=== PATIENT | male | born 1995 | race Caucasian/White ===

== ENCOUNTER 2017-11-23 05:21 | Day surgery (SDC) | payer SELFPAY ==
[~2017-11-23] VITALS: Ht 195.6 cm; Wt 139.5 kg
[2017-11-23] MEDS ORDERED: PERCOCET 325 MG1 TA3 PO ×2 (05:40→09:43)
[2017-11-23 06:03] VITALS: BP 140/76; PULSE 75; TEMP 98.5
[2017-11-23] MEDS ORDERED: COLACE 100100 MG/CAP PO (09:43)
[2017-11-23] MEDS ORDERED: MOTRIN 600600 MG/TAB PO (09:44)
[2017-11-23 10:30] VITALS: BP 147/60; PULSE 82; TEMP 98.7
[2017-11-23 10:45] VITALS: BP 153/57; PULSE 94
[2017-11-23 11:00] VITALS: BP 125/67; PULSE 89
[2017-11-23 11:15] VITALS: BP 141/66; PULSE 87
== END 2017-11-23 11:50 | disposition home or self-care (01) ==
LOC: SDCO 05:21
DX: K42.9 Umbilical hernia without obstruction or gangrene (principal); F17.290 Nicotine dependence, other tobacco product, uncomplicated; G47.30 Sleep apnea, unspecified
CPT/HCPCS: C1781; J0690; J1100; J1885; J2175; J2405; J2704; J3010; J7120

== ENCOUNTER 2018-01-08 17:36 | Emergency (ER) | payer SELFPAY ==
[~2018-01-08] VITALS: Ht 195.6 cm; Wt 144.1 kg
[~2018-01-08 17:36] MED LIST: COLACE 100100 MG/CAP PO; MOTRIN 600600 MG/TAB PO; PERCOCET 325 MG1 TA3 PO
[2018-01-08 17:46] VITALS: TEMP 99.5
[2018-01-08 18:35] LABS: BASO % 0.4 % (0.0-2.0); EOS # 0.1 (0.0-0.7); EOS % 0.8 % (0-4.0); GRAN # 5.4 (1.4-6.5); GRAN % 60.7 % (42.2-75.2); HEMATOCRIT 42.4 % (42.0-52.0); HEMOGLOBIN 14.8 g/dl (13.5-18.0); LYMPH # 2.7 (1.2-3.4); LYMPH % 30.3 % (20.0-51.0); MEAN CELL VOLUME 93 fl (80.0-100.0); MEAN CORPUSCULAR HEMOGLOBIN 33 pg (27.0-31.0); MEAN CORPUSCULAR HGB CONC 35 g/dl (33.0-37.0); MONO # 0.7 (0.1-0.6); MONO % 7.6 % (1.7-9.3); PLATELET COUNT 213 K/mm3 (130-400); RED BLOOD COUNT 4.55 M/mm3 (4.20-5.60); REDCELL DISTRIBUTION WIDTH-CV 12.7 % (11.5-14.5)
[2018-01-08 18:46] LABS: ALANINE AMINOTRANSFERASE 69 U/L (21-72); ALBUMIN 4.2 gm/dL (3.5-5.0); ALKALINE PHOSPHATASE 77 U/L (50-136); ANION GAP 14 mmol/L (7-16); AST,SGOT 35 U/L (15-37); BILIRUBIN,TOTAL 0.3 mg/dL (0.0-1.0); BLOOD UREA NITROGEN 14 mg/dL (9-20); CALCIUM 9.5 mg/dL (8.4-10.2); CARBON DIOXIDE 23 mmol/L (22-30); CHLORIDE 106 mmol/L (98-107); CREATININE, serum 0.97 mg/dL (0.66-1.25); GLUCOSE 92 mg/dL (74-106); LIPASE 56 U/L (23-300); POTASSIUM 3.8 mmol/L (3.4-5.0); SODIUM 144 mmol/L (137-145); TOTAL PROTEIN 7.7 gm/dL (6.4-8.2)
[2018-01-08 18:47] LABS: C-REACTIVE PROTEIN < 0.5 mg/dL (0.0-0.9)
[2018-01-08 19:35] LABS: COLLECTION METHOD CLEAN CATCH
[2018-01-08 19:40] LABS: PH 5 (5-8); SQUAMOUS EPITHELIAL None Seen /hpf; URINE APPEARANCE Clear; URINE BACTERIA None Seen /hpf; URINE BILIRUBIN Negative (NEGATIVE); URINE BLOOD 3+ (NEGATIVE); URINE COLOR Yellow; URINE GLUCOSE Negative (NEGATIVE); URINE KETONE Negative (NEGATIVE); URINE LEUKOCYTE ESTERASE Negative (NEGATIVE); URINE NITRATE Negative (NEGATIVE); URINE PROTEIN(semi-quant) Negative (NEGATIVE); URINE RBC >50 /hpf; URINE UROBILINOGEN Negative (NEGATIVE)
[2018-01-08] MEDS ORDERED: ZOFRAN 4MG T4 MG/TAB PO (19:54)
[2018-01-08] MEDS ORDERED: NORCO 325 MG-51 TAB PO (19:54)
[2018-01-08] MEDS ORDERED: FLOMAX 0.40.4 MG/CAP PO (19:55)
[2018-01-08 20:15] VITALS: BP 147/88; PULSE 80
== END 2018-01-08 20:42 | disposition home or self-care (01) ==
LOC: COL.ER 17:36
PROVIDERS: Emergency Medicine
DX: N20.2 Calculus of kidney with calculus of ureter (principal); F17.210 Nicotine dependence, cigarettes, uncomplicated; Z98.890 Other specified postprocedural states
CPT/HCPCS: J1170; J1885; J2405; J7030; Q9967

== ENCOUNTER 2018-01-26 20:43 | Emergency (ER) | payer SELFPAY ==
[~2018-01-26] VITALS: Ht 195.6 cm; Wt 144.1 kg
[~2018-01-26 20:43] MED LIST changes: +FLOMAX 0.40.4 MG/CAP PO; +NORCO 325 MG-51 TAB PO; +ZOFRAN 4MG T4 MG/TAB PO
[2018-01-26 20:55] LABS: BASO # 0.1 (0.0-0.2); BASO % 0.4 % (0.0-2.0); EOS # 0.3 (0.0-0.7); EOS % 2.2 % (0-4.0); GRAN # 5.9 (1.4-6.5); GRAN % 50.8 % (42.2-75.2); HEMOGLOBIN 16.7 g/dl (13.5-18.0); LYMPH # 4.2 (1.2-3.4); LYMPH % 36.6 % (20.0-51.0); MEAN CELL VOLUME 92 fl (80.0-100.0); MEAN CORPUSCULAR HEMOGLOBIN 33 pg (27.0-31.0); MEAN CORPUSCULAR HGB CONC 36 g/dl (33.0-37.0); MEAN PLATELET VOLUME 10.9 fl (7.4-10.4); MONO # 1.1 (0.1-0.6); MONO % 9.7 % (1.7-9.3); PLATELET COUNT 262 K/mm3 (130-400); RED BLOOD COUNT 5.13 M/mm3 (4.20-5.60); REDCELL DISTRIBUTION WIDTH-CV 12.3 % (11.5-14.5)
[2018-01-26 20:56] LABS: INR 1.1 (0.8-3.0)
[2018-01-26 21:04] LABS: ALANINE AMINOTRANSFERASE 73 U/L (21-72); ALBUMIN 4.5 gm/dL (3.5-5.0); ALKALINE PHOSPHATASE 72 U/L (50-136); ANION GAP 18 mmol/L (7-16); AST,SGOT 38 U/L (15-37); BILIRUBIN,TOTAL 0.5 mg/dL (0.0-1.0); BLOOD UREA NITROGEN 20 mg/dL (9-20); CALCIUM 9.6 mg/dL (8.4-10.2); CARBON DIOXIDE 21 mmol/L (22-30); CHLORIDE 102 mmol/L (98-107); CREATININE, serum 1.55 mg/dL (0.66-1.25); GLUCOSE 97 mg/dL (74-106); POTASSIUM 4.3 mmol/L (3.4-5.0); SODIUM 141 mmol/L (137-145); TOTAL PROTEIN 8.8 gm/dL (6.4-8.2)
[2018-01-26 21:25] LABS: TROPONIN-I < 0.012 ng/mL (0.000-0.034)
[2018-01-26 22:18] LABS: COLLECTION METHOD CLEAN CATCH
[2018-01-26 22:25] LABS: PH 6 (5-8); SQUAMOUS EPITHELIAL 0-2 /hpf; URINE APPEARANCE Clear; URINE BACTERIA None Seen /hpf; URINE BILIRUBIN Negative (NEGATIVE); URINE BLOOD Negative (NEGATIVE); URINE COLOR Yellow; URINE GLUCOSE Negative (NEGATIVE); URINE KETONE Negative (NEGATIVE); URINE LEUKOCYTE ESTERASE Negative (NEGATIVE); URINE NITRATE Negative (NEGATIVE); URINE PROTEIN(semi-quant) Negative (NEGATIVE); URINE RBC 0-2 /hpf; URINE UROBILINOGEN Negative (NEGATIVE)
[2018-01-27 01:05] VITALS: BP 128/73; PULSE 89
[2018-01-27 10:12] LABS: TRICYCLIC ANTIDEPRESS URINE NEGATIVE
== END 2018-01-27 01:05 | disposition home or self-care (01) ==
LOC: COL.ER 20:43
PROVIDERS: Emergency Medicine
DX: R07.89 Other chest pain (principal); F17.210 Nicotine dependence, cigarettes, uncomplicated; Z87.442 Personal history of urinary calculi
CPT/HCPCS: J2270; J2765

== ENCOUNTER 2018-03-13 11:04 | Emergency (ER) | payer SELFPAY ==
[~2018-03-13] VITALS: Ht 182.9 cm; Wt 138.2 kg
[2018-03-13 11:10] VITALS: TEMP 98.2
[2018-03-13] MEDS ORDERED: ZANTAC 150MG T150 MG PO (11:17)
[2018-03-13 11:59] LABS: BASO % 0.6 % (0.0-2.0); EOS # 0.2 (0.0-0.7); EOS % 2.1 % (0-4.0); GRAN % 54.5 % (42.2-75.2); HEMATOCRIT 43.3 % (42.0-52.0); HEMOGLOBIN 14.8 g/dl (13.5-18.0); LYMPH # 2.3 (1.2-3.4); LYMPH % 32.4 % (20.0-51.0); MEAN CELL VOLUME 93 fl (80.0-100.0); MEAN CORPUSCULAR HEMOGLOBIN 32 pg (27.0-31.0); MEAN CORPUSCULAR HGB CONC 34 g/dl (33.0-37.0); MEAN PLATELET VOLUME 10.9 fl (7.4-10.4); MONO # 0.7 (0.1-0.6); MONO % 10.1 % (1.7-9.3); PLATELET COUNT 209 K/mm3 (130-400); RED BLOOD COUNT 4.66 M/mm3 (4.20-5.60); REDCELL DISTRIBUTION WIDTH-CV 12.8 % (11.5-14.5)
[2018-03-13 12:11] LABS: ALANINE AMINOTRANSFERASE 52 U/L (21-72); ALKALINE PHOSPHATASE 76 U/L (50-136); ANION GAP 11 mmol/L (7-16); AST,SGOT 28 U/L (15-37); BILIRUBIN,TOTAL 0.2 mg/dL (0.0-1.0); BLOOD UREA NITROGEN 13 mg/dL (9-20); C-REACTIVE PROTEIN < 0.5 mg/dL (0.0-0.9); CALCIUM 9.4 mg/dL (8.4-10.2); CARBON DIOXIDE 23 mmol/L (22-30); CHLORIDE 104 mmol/L (98-107); CREATININE, serum 0.82 mg/dL (0.66-1.25); GLUCOSE 108 mg/dL (74-106); SODIUM 138 mmol/L (137-145)
[2018-03-13 12:20] LABS: COLLECTION METHOD CLEAN CATCH
[2018-03-13 12:25] LABS: PH 5 (5-8); SQUAMOUS EPITHELIAL None Seen /hpf; URINE APPEARANCE Clear; URINE BACTERIA None Seen /hpf; URINE BILIRUBIN Negative (NEGATIVE); URINE BLOOD Negative (NEGATIVE); URINE COLOR Yellow; URINE GLUCOSE Negative (NEGATIVE); URINE KETONE Negative (NEGATIVE); URINE LEUKOCYTE ESTERASE Negative (NEGATIVE); URINE NITRATE Negative (NEGATIVE); URINE PROTEIN(semi-quant) Negative (NEGATIVE); URINE RBC 0-2 /hpf; URINE UROBILINOGEN Negative (NEGATIVE)
[2018-03-13] MEDS ORDERED: NORCO 325 MG-51 TAB PO (13:50)
[2018-03-13] MEDS ORDERED: ZOFRAN ODT4 MG PO (13:50)
[2018-03-13 14:33] VITALS: BP 133/91; PULSE 85
== END 2018-03-13 14:35 | disposition home or self-care (01) ==
LOC: COL.ER 11:04
PROVIDERS: Emergency Medicine
DX: R11.10 Vomiting, unspecified (principal); R10.30 Lower abdominal pain, unspecified; Z98.890 Other specified postprocedural states
CPT/HCPCS: J1170; J2405; J7030; Q9967

== ENCOUNTER 2018-03-31 16:40 | Emergency (ER) | payer SELFPAY ==
[~2018-03-31] VITALS: Ht 195.6 cm; Wt 135.5 kg
[~2018-03-31 16:40] MED LIST changes: +ZANTAC 150MG T150 MG PO; +ZOFRAN ODT4 MG PO
[2018-03-31 18:00] LABS: BASO % 0.5 % (0.0-2.0); EOS # 0.2 (0.0-0.7); EOS % 1.9 % (0-4.0); GRAN # 4.8 (1.4-6.5); GRAN % 60.7 % (42.2-75.2); HEMATOCRIT 43.4 % (42.0-52.0); HEMOGLOBIN 15.1 g/dl (13.5-18.0); LYMPH # 2.3 (1.2-3.4); MEAN CELL VOLUME 93 fl (80.0-100.0); MEAN CORPUSCULAR HEMOGLOBIN 32 pg (27.0-31.0); MEAN CORPUSCULAR HGB CONC 35 g/dl (33.0-37.0); MEAN PLATELET VOLUME 10.6 fl (7.4-10.4); MONO # 0.6 (0.1-0.6); MONO % 7.8 % (1.7-9.3); PLATELET COUNT 200 K/mm3 (130-400); RED BLOOD COUNT 4.68 M/mm3 (4.20-5.60); REDCELL DISTRIBUTION WIDTH-CV 12.8 % (11.5-14.5)
[2018-03-31 18:14] LABS: BILIRUBIN,TOTAL 0.4 mg/dL (0.0-1.0); C-REACTIVE PROTEIN 0.7 mg/dL (0.0-0.9); CALCIUM 8.6 mg/dL (8.4-10.2); CREATININE, serum 0.93 mg/dL (0.66-1.25); POTASSIUM 3.9 mmol/L (3.4-5.0)
[2018-03-31 18:22] LABS: COLLECTION METHOD CLEAN CATCH
[2018-03-31 18:33] LABS: MUCOUS Present /lpf; PH 6 (5-8); SQUAMOUS EPITHELIAL 0-2 /hpf; URINE APPEARANCE Clear; URINE BACTERIA None Seen /hpf; URINE BILIRUBIN Negative (NEGATIVE); URINE BLOOD Negative (NEGATIVE); URINE COLOR Yellow; URINE GLUCOSE Negative (NEGATIVE); URINE KETONE Negative (NEGATIVE); URINE LEUKOCYTE ESTERASE Negative (NEGATIVE); URINE NITRATE Negative (NEGATIVE); URINE PROTEIN(semi-quant) Negative (NEGATIVE); URINE RBC 0-2 /hpf; URINE UROBILINOGEN >=4.0 mg/dL (NEGATIVE)
[2018-03-31 19:09] VITALS: BP 130/73; PULSE 69; TEMP 97.8
== END 2018-03-31 19:22 | disposition home or self-care (01) ==
LOC: COL.ER 16:40
PROVIDERS: Nurse Practitioner
DX: R10.13 Epigastric pain (principal); F17.210 Nicotine dependence, cigarettes, uncomplicated; Z98.890 Other specified postprocedural states
CPT/HCPCS: J1170; J2405; J7030

== ENCOUNTER 2018-04-15 12:28 | Emergency (ER) | payer SELFPAY ==
[~2018-04-15] VITALS: Ht 195.6 cm; Wt 135.0 kg
[2018-04-15] MEDS ORDERED: NORCO 325 MG-7.1 TAB PO (13:32)
[2018-04-15 13:53] VITALS: BP 140/91; PULSE 105; TEMP 98.3
== END 2018-04-15 13:55 | disposition home or self-care (01) ==
LOC: COL.ER 12:28
DX: S49.91XA Unspecified injury of right shoulder and upper arm, initial encounter (principal); F17.210 Nicotine dependence, cigarettes, uncomplicated; Z98.890 Other specified postprocedural states; W19.XXXA Unspecified fall, initial encounter; Y92.89 Other specified places as the place of occurrence of the external cause

== ENCOUNTER 2018-05-04 12:42 | Emergency (ER) | payer SELFPAY ==
[~2018-05-04] VITALS: Ht 195.6 cm; Wt 143.6 kg
[~2018-05-04 12:42] MED LIST changes: +NORCO 325 MG-7.1 TAB PO
[2018-05-04 12:51] VITALS: BP 151/89; PULSE 67; TEMP 98.3
== END 2018-05-04 13:59 | disposition left against medical advice (07) ==
LOC: COL.ER 12:42
DX: R10.32 Left lower quadrant pain (principal)

== ENCOUNTER 2018-06-25 18:31 | Emergency (ER) | payer OTHER ==
[~2018-06-25] VITALS: Ht 182.9 cm; Wt 143.2 kg
[2018-06-25 18:34] VITALS: TEMP 98
[2018-06-25 21:06] VITALS: BP 136/66; PULSE 86
== END 2018-06-25 21:07 | disposition home or self-care (01) ==
LOC: COL.ER 18:31
DX: S93.402A Sprain of unspecified ligament of left ankle, initial encounter (principal); F17.210 Nicotine dependence, cigarettes, uncomplicated; X50.1XXA Overexertion from prolonged static or awkward postures, initial encounter; Y99.0 Civilian activity done for income or pay
CPT/HCPCS: J1885

== ENCOUNTER 2018-09-22 18:34 | Emergency (ER) | payer SELFPAY ==
[~2018-09-22] VITALS: Ht 195.6 cm; Wt 144.1 kg
[2018-09-22 18:43] VITALS: TEMP 99
[2018-09-22 21:55] LABS: BASO # 0.1 (0.0-0.2); BASO % 0.5 % (0.0-2.0); EOS # 0.2 (0.0-0.7); EOS % 2.3 % (0-4.0); GRAN # 4.4 (1.4-6.5); HEMATOCRIT 43.2 % (42.0-52.0); HEMOGLOBIN 15.1 g/dl (13.5-18.0); LYMPH # 3.9 (1.2-3.4); LYMPH % 41.6 % (20.0-51.0); MEAN CELL VOLUME 94 fl (80.0-100.0); MEAN CORPUSCULAR HEMOGLOBIN 33 pg (27.0-31.0); MEAN CORPUSCULAR HGB CONC 35 g/dl (33.0-37.0); MEAN PLATELET VOLUME 11.1 fl (7.4-10.4); MONO # 0.8 (0.1-0.6); MONO % 8.5 % (1.7-9.3); PLATELET COUNT 211 K/mm3 (130-400); RED BLOOD COUNT 4.62 M/mm3 (4.20-5.60); REDCELL DISTRIBUTION WIDTH-CV 12.3 % (11.5-14.5)
[2018-09-22 22:07] LABS: ALANINE AMINOTRANSFERASE 62 U/L (21-72); ALBUMIN 4.3 gm/dL (3.5-5.0); ALKALINE PHOSPHATASE 66 U/L (50-136); ANION GAP 8 mmol/L (7-16); AST,SGOT 33 U/L (15-37); BILIRUBIN,TOTAL 0.2 mg/dL (0.0-1.0); BLOOD UREA NITROGEN 13 mg/dL (9-20); C-REACTIVE PROTEIN < 0.5 mg/dL (0.0-0.9); CALCIUM 8.9 mg/dL (8.4-10.2); CARBON DIOXIDE 24 mmol/L (22-30); CHLORIDE 105 mmol/L (98-107); CREATININE, serum 0.95 mg/dL (0.66-1.25); GLUCOSE 93 mg/dL (74-106); LIPASE 59 U/L (23-300); POTASSIUM 3.8 mmol/L (3.4-5.0); SODIUM 138 mmol/L (137-145); TOTAL PROTEIN 7.2 gm/dL (6.4-8.2)
[2018-09-22 22:44] LABS: COLLECTION METHOD CLEAN CATCH
[2018-09-22 22:59] LABS: AMORPHOUS CRYSTAL Present /uL; PH 7 (5-8); SQUAMOUS EPITHELIAL None Seen /hpf; URINE APPEARANCE Hazy; URINE BACTERIA None Seen /hpf; URINE BILIRUBIN Negative (NEGATIVE); URINE BLOOD Negative (NEGATIVE); URINE COLOR Yellow; URINE GLUCOSE Negative (NEGATIVE); URINE KETONE Negative (NEGATIVE); URINE LEUKOCYTE ESTERASE Negative (NEGATIVE); URINE NITRATE Negative (NEGATIVE); URINE PROTEIN(semi-quant) 1+ (NEGATIVE); URINE RBC 0-2 /hpf; URINE UROBILINOGEN Negative (NEGATIVE)
[2018-09-23] MEDS ORDERED: PERCOCET 325 MG1 TAB PO (00:11)
[2018-09-23] MEDS ORDERED: CIPRO 500MG TA500 MG PO (00:11)
[2018-09-23] MEDS ORDERED: FLAGYL500 MG PO (00:11)
[2018-09-23 00:39] VITALS: BP 131/75; PULSE 86
== END 2018-09-23 00:52 | disposition home or self-care (01) ==
LOC: COL.ER 18:34
PROVIDERS: Emergency Medicine
DX: K52.9 Noninfective gastroenteritis and colitis, unspecified (principal); Z98.890 Other specified postprocedural states
CPT/HCPCS: J1170; J2405; J7030; Q9967

== ENCOUNTER 2018-09-27 11:16 | Emergency (ER) | payer OTHER ==
[~2018-09-27] VITALS: Ht 195.6 cm; Wt 144.1 kg
[~2018-09-27 11:16] MED LIST changes: +CIPRO 500MG TA500 MG PO; +FLAGYL500 MG PO; +PERCOCET 325 MG1 TAB PO
[2018-09-27 11:21] VITALS: BP 141/74
[2018-09-27 12:06] LABS: BASO % 0.5 % (0.0-2.0); EOS # 0.1 (0.0-0.7); EOS % 1.8 % (0-4.0); GRAN # 4.6 (1.4-6.5); GRAN % 60.9 % (42.2-75.2); HEMATOCRIT 44.9 % (42.0-52.0); HEMOGLOBIN 15.7 g/dl (13.5-18.0); LYMPH # 2.2 (1.2-3.4); LYMPH % 29.2 % (20.0-51.0); MEAN CELL VOLUME 93 fl (80.0-100.0); MEAN CORPUSCULAR HEMOGLOBIN 32 pg (27.0-31.0); MEAN CORPUSCULAR HGB CONC 35 g/dl (33.0-37.0); MONO # 0.6 (0.1-0.6); MONO % 7.2 % (1.7-9.3); PLATELET COUNT 190 K/mm3 (130-400); RED BLOOD COUNT 4.84 M/mm3 (4.20-5.60); REDCELL DISTRIBUTION WIDTH-CV 12.3 % (11.5-14.5)
[2018-09-27 12:07] LABS: ALANINE AMINOTRANSFERASE 69 U/L (21-72); ALBUMIN 4.2 gm/dL (3.5-5.0); ALKALINE PHOSPHATASE 61 U/L (50-136); ANION GAP 8 mmol/L (7-16); AST,SGOT 34 U/L (15-37); BILIRUBIN,TOTAL 0.4 mg/dL (0.0-1.0); BLOOD UREA NITROGEN 11 mg/dL (9-20); CALCIUM 9.2 mg/dL (8.4-10.2); CARBON DIOXIDE 25 mmol/L (22-30); CHLORIDE 105 mmol/L (98-107); CREATININE, serum 0.77 mg/dL (0.66-1.25); GLUCOSE 94 mg/dL (74-106); LIPASE 49 U/L (23-300); POTASSIUM 4.1 mmol/L (3.4-5.0); SODIUM 138 mmol/L (137-145); TOTAL PROTEIN 7.2 gm/dL (6.4-8.2)
[2018-09-27 12:11] LABS: C-REACTIVE PROTEIN < 0.5 mg/dL (0.0-0.9)
[2018-09-27] MEDS ORDERED: PRIL40 PO (12:34)
[2018-09-27] MEDS ORDERED: CIPRO 500MG TA500 MG PO (12:35)
[2018-09-27] MEDS ORDERED: FLAGYL500 MG PO (12:35)
--- NOTE | 2018-09-27 13:04 | NUR ---
SW met with patient and about assitance for filling his prescriptions. Patient reports he has a PCP but no insurance and is unbale to pay for copay and medications. SW asked if he has tried going to the [facility] clinic or free clinic. Patient's reports they have but the cannot afford the copay. Patient recently quit his job and inquired about applying for medicaid. SW contacted [facility] couselor. KAREEM then provided a med voucher and faxed the prescriptions and voucher to [facility].
[2018-09-27 13:10] VITALS: PULSE 68; TEMP 98.3
== END 2018-09-27 13:12 | disposition home or self-care (01) ==
LOC: COL.ER 11:16
PROVIDERS: Nurse Practitioner
DX: R10.10 Upper abdominal pain, unspecified (principal); K52.9 Noninfective gastroenteritis and colitis, unspecified; F17.210 Nicotine dependence, cigarettes, uncomplicated

== ENCOUNTER 2018-12-23 19:25 | Emergency (ER) | payer SELFPAY ==
[~2018-12-23] VITALS: Ht 195.6 cm; Wt 145.5 kg
[~2018-12-23 19:25] MED LIST changes: +PRIL40 PO
[2018-12-23 19:38] VITALS: TEMP 98.6
[2018-12-23 19:52] LABS: COLLECTION METHOD CLEAN CATCH
[2018-12-23 20:05] LABS: PH 5 (5-8); SQUAMOUS EPITHELIAL None Seen /hpf; URINE APPEARANCE Clear; URINE BACTERIA None Seen /hpf; URINE BILIRUBIN Negative (NEGATIVE); URINE BLOOD Negative (NEGATIVE); URINE COLOR Yellow; URINE GLUCOSE Negative (NEGATIVE); URINE KETONE Negative (NEGATIVE); URINE LEUKOCYTE ESTERASE Negative (NEGATIVE); URINE NITRATE Negative (NEGATIVE); URINE PROTEIN(semi-quant) Negative (NEGATIVE); URINE RBC 0-2 /hpf; URINE UROBILINOGEN Negative (NEGATIVE)
[2018-12-23] MEDS ORDERED: ZANTAC 150MG T150 MG PO (20:44)
[2018-12-23] MEDS ORDERED: DOXYCYCLINE 10100 MG PO (21:57)
[2018-12-23] MEDS ORDERED: NORCO 325 MG-51 TAB PO (21:57)
[2018-12-23 22:20] VITALS: BP 136/87; PULSE 93
== END 2018-12-23 22:22 | disposition home or self-care (01) ==
LOC: COL.ER 19:25
PROVIDERS: Family Medicine
DX: N45.1 Epididymitis (principal)
CPT/HCPCS: J2270; J2550

== ENCOUNTER 2019-03-08 19:37 | Emergency (ER) | payer SELFPAY ==
[~2019-03-08] VITALS: Ht 195.6 cm; Wt 147.7 kg
[~2019-03-08 19:37] MED LIST changes: +DOXYCYCLINE 10100 MG PO
[2019-03-08 20:00] VITALS: TEMP 98.6
[2019-03-08] MEDS ORDERED: ZOLOFT 100MG100 MG PO (21:03)
[2019-03-08 21:41] LABS: BASO # 0.1 (0.0-0.2); BASO % 0.6 % (0.0-2.0); EOS # 0.2 (0.0-0.7); EOS % 2.2 % (0-4.0); GRAN # 4.2 (1.4-6.5); GRAN % 53.9 % (42.2-75.2); HEMATOCRIT 43.5 % (42.0-52.0); HEMOGLOBIN 15.3 g/dl (13.5-18.0); LYMPH # 2.5 (1.2-3.4); LYMPH % 32.4 % (20.0-51.0); MEAN CELL VOLUME 94 fl (80.0-100.0); MEAN CORPUSCULAR HEMOGLOBIN 33 pg (27.0-31.0); MEAN CORPUSCULAR HGB CONC 35 g/dl (33.0-37.0); MONO # 0.8 (0.1-0.6); MONO % 10.6 % (1.7-9.3); PLATELET COUNT 202 K/mm3 (130-400); RED BLOOD COUNT 4.64 M/mm3 (4.20-5.60); REDCELL DISTRIBUTION WIDTH-CV 12.6 % (11.5-14.5)
[2019-03-08 21:56] LABS: ALBUMIN 4.2 gm/dL (3.5-5.0); BILIRUBIN,TOTAL 0.2 mg/dL (0.0-1.0); C-REACTIVE PROTEIN 1.4 mg/dL (0.0-0.9); CALCIUM 8.9 mg/dL (8.4-10.2); CREATININE, serum 0.88 (0.66-1.25); POTASSIUM 4.1 mmol/L (3.4-5.0); TOTAL PROTEIN 7.3 gm/dL (6.4-8.2)
[2019-03-08 23:38] VITALS: BP 131/86; PULSE 95
== END 2019-03-08 23:49 | disposition home or self-care (01) ==
LOC: COL.ER 19:37
PROVIDERS: Family Medicine
DX: K29.70 Gastritis, unspecified, without bleeding (principal); Z98.890 Other specified postprocedural states
CPT/HCPCS: C9113; J2270; J2405; J7030; Q9967

== ENCOUNTER 2019-03-17 21:38 | Emergency (ER) | payer SELFPAY ==
[~2019-03-17] VITALS: Ht 195.6 cm; Wt 148.2 kg
[~2019-03-17 21:38] MED LIST changes: +ZOLOFT 100MG100 MG PO
[2019-03-17 22:12] LABS: COLLECTION METHOD CLEAN CATCH
[2019-03-17 22:18] LABS: MUCOUS Present /lpf; PH 6 (5-8); SQUAMOUS EPITHELIAL None Seen /hpf; URINE APPEARANCE Clear; URINE BACTERIA None Seen /hpf; URINE BILIRUBIN Negative (NEGATIVE); URINE BLOOD Negative (NEGATIVE); URINE COLOR Yellow; URINE GLUCOSE Negative (NEGATIVE); URINE KETONE Negative (NEGATIVE); URINE LEUKOCYTE ESTERASE Negative (NEGATIVE); URINE NITRATE Negative (NEGATIVE); URINE PROTEIN(semi-quant) Negative (NEGATIVE); URINE RBC 0-2 /hpf; URINE UROBILINOGEN Negative (NEGATIVE)
[2019-03-17 22:19] LABS: BASO # 0.1 (0.0-0.2); BASO % 0.6 % (0.0-2.0); EOS # 0.2 (0.0-0.7); EOS % 1.8 % (0-4.0); GRAN # 4.4 (1.4-6.5); GRAN % 51.4 % (42.2-75.2); HEMATOCRIT 41.6 % (42.0-52.0); HEMOGLOBIN 14.6 g/dl (13.5-18.0); LYMPH # 3.3 (1.2-3.4); MEAN CELL VOLUME 94 fl (80.0-100.0); MEAN CORPUSCULAR HEMOGLOBIN 33 pg (27.0-31.0); MEAN CORPUSCULAR HGB CONC 35 g/dl (33.0-37.0); MEAN PLATELET VOLUME 10.5 fl (7.4-10.4); MONO # 0.6 (0.1-0.6); MONO % 6.8 % (1.7-9.3); PLATELET COUNT 221 K/mm3 (130-400); RED BLOOD COUNT 4.41 M/mm3 (4.20-5.60); REDCELL DISTRIBUTION WIDTH-CV 12.4 % (11.5-14.5)
[2019-03-17 22:24] LABS: TRICYCLIC ANTIDEPRESS URINE POSITIVE
[2019-03-17 22:30] LABS: ALANINE AMINOTRANSFERASE 82 U/L (21-72); ALBUMIN 3.9 gm/dL (3.5-5.0); ALKALINE PHOSPHATASE 69 U/L (50-136); ANION GAP 10 mmol/L (7-16); AST,SGOT 35 U/L (15-37); BILIRUBIN,TOTAL 0.3 mg/dL (0.0-1.0); BLOOD UREA NITROGEN 9 mg/dL (9-20); CARBON DIOXIDE 24 mmol/L (22-30); CHLORIDE 106 mmol/L (98-107); CREATININE, serum 0.84 (0.66-1.25); GLUCOSE 139 mg/dL (74-106); POTASSIUM 3.5 mmol/L (3.4-5.0); SODIUM 139 mmol/L (137-145); TOTAL PROTEIN 6.9 gm/dL (6.4-8.2)
[2019-03-17 22:34] LABS: ACETAMINOPHEN < 10 ug/mL (10-30); ALCOHOL(ethanol),MEDICAL < 10 mg/dL; SALICYLATE < 1.0 mg/dL
[2019-03-17] MEDS ORDERED: SEROQUEL50 MG PO (22:35)
[2019-03-17] MEDS ORDERED: XANAX 1MG1 MG PO (22:36)
[2019-03-18 08:52] VITALS: TEMP 98.6
[2019-03-18 19:45] VITALS: BP 148/72; PULSE 80
== END 2019-03-18 19:45 ==
LOC: COL.ER 21:38
PROVIDERS: Physician Assistant
DX: R45.851 Suicidal ideations (principal); F32.9 Major depressive disorder, single episode, unspecified; F17.290 Nicotine dependence, other tobacco product, uncomplicated; F41.9 Anxiety disorder, unspecified; Z98.890 Other specified postprocedural states

== ENCOUNTER 2019-04-16 20:15 | Emergency (ER) | payer SELFPAY ==
[~2019-04-16] VITALS: Ht 195.6 cm; Wt 150.0 kg
[~2019-04-16 20:15] MED LIST changes: +SEROQUEL50 MG PO; +XANAX 1MG1 MG PO
[2019-04-16 20:21] VITALS: TEMP 97.6
[2019-04-16 22:30] VITALS: BP 138/95; PULSE 95
== END 2019-04-16 22:32 | disposition home or self-care (01) ==
LOC: COL.ER 20:15
DX: S39.011A Strain of muscle, fascia and tendon of abdomen, initial encounter (principal); F17.210 Nicotine dependence, cigarettes, uncomplicated; Z98.890 Other specified postprocedural states; X58.XXXA Exposure to other specified factors, initial encounter

== ENCOUNTER 2019-04-21 12:45 | Emergency (ER) | payer SELFPAY ==
[~2019-04-21] VITALS: Ht 195.6 cm; Wt 145.5 kg
[2019-04-21] MEDS ORDERED: XANAX 1MG1 MG PO (13:23)
[2019-04-21] MEDS ORDERED: ABILIFY5 MG PO (13:23)
[2019-04-21 13:36] LABS: COLLECTION METHOD CLEAN CATCH
[2019-04-21 13:45] LABS: PH 5 (5-8); SQUAMOUS EPITHELIAL None Seen /hpf; URINE APPEARANCE Clear; URINE BACTERIA None Seen /hpf; URINE BILIRUBIN Negative (NEGATIVE); URINE BLOOD Negative (NEGATIVE); URINE COLOR Yellow; URINE GLUCOSE Negative (NEGATIVE); URINE KETONE Negative (NEGATIVE); URINE LEUKOCYTE ESTERASE Negative (NEGATIVE); URINE NITRATE Negative (NEGATIVE); URINE PROTEIN(semi-quant) Negative (NEGATIVE); URINE RBC 0-2 /hpf; URINE UROBILINOGEN Negative (NEGATIVE)
[2019-04-21 13:51] LABS: BASO % 0.7 % (0.0-2.0); EOS # 0.1 (0.0-0.7); EOS % 2.2 % (0-4.0); GRAN % 54.4 % (42.2-75.2); HEMATOCRIT 45.9 % (42.0-52.0); HEMOGLOBIN 15.7 g/dl (13.5-18.0); LYMPH # 1.9 (1.2-3.4); LYMPH % 33.5 % (20.0-51.0); MEAN CELL VOLUME 94 fl (80.0-100.0); MEAN CORPUSCULAR HEMOGLOBIN 32 pg (27.0-31.0); MEAN CORPUSCULAR HGB CONC 34 g/dl (33.0-37.0); MEAN PLATELET VOLUME 11.1 fl (7.4-10.4); MONO # 0.5 (0.1-0.6); PLATELET COUNT 155 K/mm3 (130-400); RED BLOOD COUNT 4.87 M/mm3 (4.20-5.60); REDCELL DISTRIBUTION WIDTH-CV 12.2 % (11.5-14.5)
[2019-04-21 14:04] LABS: ALANINE AMINOTRANSFERASE 84 U/L (21-72); ALBUMIN 4.5 gm/dL (3.5-5.0); ALKALINE PHOSPHATASE 68 U/L (50-136); ANION GAP 12 mmol/L (7-16); AST,SGOT 49 U/L (15-37); BILIRUBIN,TOTAL 0.6 mg/dL (0.0-1.0); BLOOD UREA NITROGEN 9 mg/dL (9-20); CALCIUM 9.4 mg/dL (8.4-10.2); CARBON DIOXIDE 24 mmol/L (22-30); CHLORIDE 104 mmol/L (98-107); CREATININE, serum 0.82 (0.66-1.25); GLUCOSE 101 mg/dL (74-106); SODIUM 141 mmol/L (137-145); TOTAL PROTEIN 7.4 gm/dL (6.4-8.2)
[2019-04-21 14:07] LABS: ACETAMINOPHEN < 10 ug/mL (10-30); ALCOHOL(ethanol),MEDICAL < 10 mg/dL; SALICYLATE < 1.0 mg/dL
[2019-04-21 14:09] LABS: TRICYCLIC ANTIDEPRESS URINE NEGATIVE
[2019-04-21 17:55] VITALS: TEMP 97.6
[2019-04-22 01:53] VITALS: BP 137/93; PULSE 91
== END 2019-04-22 01:53 ==
LOC: COL.ER 12:45
PROVIDERS: Emergency Medicine
DX: R45.851 Suicidal ideations (principal); F32.9 Major depressive disorder, single episode, unspecified; F17.210 Nicotine dependence, cigarettes, uncomplicated

== ENCOUNTER 2019-05-22 13:19 | Emergency (ER) | payer MEDICAID ==
[~2019-05-22] VITALS: Ht 195.6 cm; Wt 146.8 kg
[~2019-05-22 13:19] MED LIST changes: +ABILIFY5 MG PO; +BENTYL 20MG20 MG/TAB PO
[2019-05-22 13:22] VITALS: BP 125/76; TEMP 98.5
[2019-05-22] MEDS ORDERED: ABILIFY 10MG TA10 MG PO (13:28)
[2019-05-22] MEDS ORDERED: PAXIL 20MG20 MG PO (13:28)
[2019-05-22 14:04] VITALS: PULSE 111
[2019-05-23] MEDS ORDERED: ZOFRAN ODT4 MG PO (21:47)
== END 2019-05-22 14:05 | disposition home or self-care (01) ==
LOC: COL.ER 13:19
DX: S86.912A Strain of unspecified muscle(s) and tendon(s) at lower leg level, left leg, initial encounter (principal); W18.42XA Slipping, tripping and stumbling without falling due to stepping into hole or opening, initial encounter; X50.1XXA Overexertion from prolonged static or awkward postures, initial encounter
CPT/HCPCS: L1846

== ENCOUNTER 2019-05-23 19:39 | Emergency (ER) | payer MEDICAID ==
[~2019-05-23] VITALS: Ht 195.6 cm; Wt 145.0 kg
[~2019-05-23 19:39] MED LIST changes: +ABILIFY 10MG TA10 MG PO; +PAXIL 20MG20 MG PO
[2019-05-23 19:53] VITALS: TEMP 98.8
[2019-05-23 20:31] LABS: BASO # 0.1 (0.0-0.2); BASO % 0.6 % (0.0-2.0); EOS # 0.2 (0.0-0.7); EOS % 2.6 % (0-4.0); GRAN # 3.7 (1.4-6.5); GRAN % 46.1 % (42.2-75.2); HEMATOCRIT 40.7 % (42.0-52.0); LYMPH # 3.3 (1.2-3.4); LYMPH % 42.1 % (20.0-51.0); MEAN CELL VOLUME 94 fl (80.0-100.0); MEAN CORPUSCULAR HEMOGLOBIN 33 pg (27.0-31.0); MEAN CORPUSCULAR HGB CONC 34 g/dl (33.0-37.0); MEAN PLATELET VOLUME 10.8 fl (7.4-10.4); MONO # 0.7 (0.1-0.6); MONO % 8.2 % (1.7-9.3); PLATELET COUNT 231 K/mm3 (130-400); RED BLOOD COUNT 4.31 M/mm3 (4.20-5.60); REDCELL DISTRIBUTION WIDTH-CV 12.5 % (11.5-14.5)
[2019-05-23 20:45] LABS: ALANINE AMINOTRANSFERASE 81 U/L (21-72); ALBUMIN 4.2 gm/dL (3.5-5.0); ALKALINE PHOSPHATASE 73 U/L (50-136); ANION GAP 9 mmol/L (7-16); AST,SGOT 39 U/L (15-37); BILIRUBIN,TOTAL 0.1 mg/dL (0.0-1.0); BLOOD UREA NITROGEN 14 mg/dL (9-20); CALCIUM 8.8 mg/dL (8.4-10.2); CARBON DIOXIDE 25 mmol/L (22-30); CHLORIDE 106 mmol/L (98-107); CREATININE, serum 0.93 (0.66-1.25); GLUCOSE 91 mg/dL (74-106); LIPASE 110 U/L (23-300); POTASSIUM 3.8 mmol/L (3.4-5.0); SODIUM 140 mmol/L (137-145); TOTAL PROTEIN 7.2 gm/dL (6.4-8.2)
[2019-05-23 20:46] LABS: C-REACTIVE PROTEIN < 0.5 mg/dL (0.0-0.9)
[2019-05-23 20:57] LABS: COLLECTION METHOD CLEAN CATCH
[2019-05-23 21:10] LABS: MUCOUS Present /lpf; PH 5 (5-8); SQUAMOUS EPITHELIAL None Seen /hpf; URINE APPEARANCE Clear; URINE BACTERIA None Seen /hpf; URINE BILIRUBIN Negative (NEGATIVE); URINE BLOOD Negative (NEGATIVE); URINE COLOR Yellow; URINE GLUCOSE Negative (NEGATIVE); URINE KETONE Negative (NEGATIVE); URINE LEUKOCYTE ESTERASE Negative (NEGATIVE); URINE NITRATE Negative (NEGATIVE); URINE PROTEIN(semi-quant) Negative (NEGATIVE); URINE RBC None Seen /hpf; URINE UROBILINOGEN Negative (NEGATIVE)
[2019-05-23] MEDS ORDERED: ZOFRAN ODT4 MG PO (21:47)
[2019-05-23 21:59] VITALS: BP 122/83; PULSE 90
== END 2019-05-23 22:01 | disposition home or self-care (01) ==
LOC: COL.ER 19:39
PROVIDERS: Nurse Practitioner
DX: R10.11 Right upper quadrant pain (principal); F41.9 Anxiety disorder, unspecified; F31.9 Bipolar disorder, unspecified; F17.210 Nicotine dependence, cigarettes, uncomplicated; Z87.442 Personal history of urinary calculi; Z98.890 Other specified postprocedural states; Z88.8 Allergy status to other drugs, medicaments and biological substances
CPT/HCPCS: J2270; J2405; J7030

== ENCOUNTER 2019-05-31 18:28 | Emergency (ER) | payer MEDICAID ==
[~2019-05-31] VITALS: Ht 195.6 cm; Wt 145.0 kg
[2019-05-31 18:28] VITALS: TEMP 98.2
[2019-05-31 19:16] LABS: BASO # 0.1 (0.0-0.2); BASO % 0.6 % (0.0-2.0); EOS # 0.1 (0.0-0.7); EOS % 1.8 % (0-4.0); GRAN # 4.2 (1.4-6.5); HEMATOCRIT 41.4 % (42.0-52.0); HEMOGLOBIN 14.1 g/dl (13.5-18.0); LYMPH % 37.3 % (20.0-51.0); MEAN CELL VOLUME 94 fl (80.0-100.0); MEAN CORPUSCULAR HEMOGLOBIN 32 pg (27.0-31.0); MEAN CORPUSCULAR HGB CONC 34 g/dl (33.0-37.0); MONO # 0.6 (0.1-0.6); PLATELET COUNT 215 K/mm3 (130-400); RED BLOOD COUNT 4.42 M/mm3 (4.20-5.60); REDCELL DISTRIBUTION WIDTH-CV 12.5 % (11.5-14.5)
[2019-05-31 19:20] LABS: ALBUMIN 4.2 gm/dL (3.5-5.0); BILIRUBIN,TOTAL 0.3 mg/dL (0.0-1.0); CALCIUM 9.1 mg/dL (8.4-10.2); CREATININE, serum 1.04 (0.66-1.25); POTASSIUM 3.9 mmol/L (3.4-5.0); TOTAL PROTEIN 7.1 gm/dL (6.4-8.2)
[2019-05-31 19:31] LABS: TROPONIN-I 0.024 ng/mL (0.000-0.035)
[2019-05-31 21:29] VITALS: BP 118/68; PULSE 80
== END 2019-05-31 22:10 | disposition home or self-care (01) ==
LOC: COL.ER 18:28
PROVIDERS: Emergency Medicine
DX: R07.89 Other chest pain (principal)
CPT/HCPCS: J0780; J1885; J7030

== ENCOUNTER 2019-07-18 13:22 | Emergency (ER) | payer MEDICAID ==
[~2019-07-18] VITALS: Ht 195.6 cm; Wt 150.0 kg
[2019-07-18 13:31] VITALS: BP 124/73; TEMP 97.6
[2019-07-18] MEDS ORDERED: PERCOCET 325 MG1 TA2 PO (16:06)
[2019-07-18 16:07] VITALS: PULSE 81
== END 2019-07-18 16:09 | disposition home or self-care (01) ==
LOC: COL.ER 13:22
DX: R10.33 Periumbilical pain (principal)
CPT/HCPCS: J1170; J2405

== ENCOUNTER 2019-08-10 20:32 | Emergency (ER) | payer MEDICAID ==
[~2019-08-10] VITALS: Ht 195.6 cm; Wt 150.0 kg
[~2019-08-10 20:32] MED LIST changes: +PERCOCET 325 MG1 TA2 PO
[2019-08-10 21:16] LABS: COLLECTION METHOD CLEAN CATCH
[2019-08-10 21:22] LABS: MUCOUS Present /lpf; PH 6 (5-8); SQUAMOUS EPITHELIAL 0-2 /hpf; URINE APPEARANCE Clear; URINE BACTERIA None Seen /hpf; URINE BILIRUBIN Negative (NEGATIVE); URINE BLOOD Negative (NEGATIVE); URINE COLOR Yellow; URINE GLUCOSE Negative (NEGATIVE); URINE KETONE Negative (NEGATIVE); URINE LEUKOCYTE ESTERASE Negative (NEGATIVE); URINE NITRATE Negative (NEGATIVE); URINE PROTEIN(semi-quant) Negative (NEGATIVE); URINE RBC 0-2 /hpf; URINE UROBILINOGEN Negative (NEGATIVE)
[2019-08-10 21:31] LABS: TRICYCLIC ANTIDEPRESS URINE NEGATIVE
[2019-08-10 22:10] LABS: BASO % 0.5 % (0.0-2.0); EOS # 0.2 (0.0-0.7); EOS % 2.4 % (0-4.0); GRAN # 3.7 (1.4-6.5); GRAN % 50.6 % (42.2-75.2); HEMATOCRIT 44.4 % (42.0-52.0); HEMOGLOBIN 15.2 g/dl (13.5-18.0); LYMPH # 2.8 (1.2-3.4); LYMPH % 38.3 % (20.0-51.0); MEAN CELL VOLUME 93 fl (80.0-100.0); MEAN CORPUSCULAR HEMOGLOBIN 32 pg (27.0-31.0); MEAN CORPUSCULAR HGB CONC 34 g/dl (33.0-37.0); MEAN PLATELET VOLUME 10.9 fl (7.4-10.4); MONO # 0.6 (0.1-0.6); MONO % 7.9 % (1.7-9.3); PLATELET COUNT 199 K/mm3 (130-400); RED BLOOD COUNT 4.79 M/mm3 (4.20-5.60); REDCELL DISTRIBUTION WIDTH-CV 12.7 % (11.5-14.5)
[2019-08-10 22:22] LABS: ALANINE AMINOTRANSFERASE 93 U/L (21-72); ALBUMIN 4.3 gm/dL (3.5-5.0); ALKALINE PHOSPHATASE 62 U/L (50-136); ANION GAP 10 mmol/L (7-16); AST,SGOT 44 U/L (15-37); BILIRUBIN,TOTAL 0.3 mg/dL (0.0-1.0); BLOOD UREA NITROGEN 13 mg/dL (9-20); CALCIUM 9.2 mg/dL (8.4-10.2); CARBON DIOXIDE 23 mmol/L (22-30); CHLORIDE 106 mmol/L (98-107); CREATININE, serum 0.92 (0.66-1.25); GLUCOSE 128 mg/dL (74-106); POTASSIUM 3.9 mmol/L (3.4-5.0); SODIUM 139 mmol/L (137-145); TOTAL PROTEIN 7.2 gm/dL (6.4-8.2)
[2019-08-10 22:26] LABS: ACETAMINOPHEN < 10 ug/mL (10-30); ALCOHOL(ethanol),MEDICAL < 10 mg/dL
[2019-08-11 10:10] VITALS: BP 132/72; PULSE 71; TEMP 98.9
== END 2019-08-11 10:10 ==
LOC: COL.ER 20:32
PROVIDERS: Family Medicine
DX: R45.851 Suicidal ideations (principal); F32.9 Major depressive disorder, single episode, unspecified

== ENCOUNTER 2019-09-28 00:56 | Emergency (ER) | payer MEDICAID ==
[~2019-09-28] VITALS: Ht 195.6 cm; Wt 152.3 kg
[2019-09-28] MEDS ORDERED: NEURONTIN400 MG/CAP PO (01:22)
[2019-09-28 02:31] VITALS: BP 124/86; PULSE 90; TEMP 98.4
== END 2019-09-28 02:32 | disposition home or self-care (01) ==
LOC: COL.ER 00:56
DX: M79.662 Pain in left lower leg (principal); F41.8 Other specified anxiety disorders; F17.210 Nicotine dependence, cigarettes, uncomplicated; Z88.8 Allergy status to other drugs, medicaments and biological substances; Z88.6 Allergy status to analgesic agent; Z88.2 Allergy status to sulfonamides

== ENCOUNTER 2019-10-19 16:03 | Emergency (ER) | payer MEDICAID ==
[~2019-10-19] VITALS: Ht 195.6 cm; Wt 149.1 kg
[~2019-10-19 16:03] MED LIST changes: +NEURONTIN400 MG/CAP PO
[2019-10-19 16:29] VITALS: TEMP 98.5
[2019-10-19 19:25] VITALS: BP 149/93; PULSE 80
== END 2019-10-19 19:25 | disposition home or self-care (01) ==
LOC: COL.ER 16:03
DX: G44.209 Tension-type headache, unspecified, not intractable (principal); F17.210 Nicotine dependence, cigarettes, uncomplicated
CPT/HCPCS: J0780; J1170; J1200; J1885

== ENCOUNTER 2019-10-25 16:12 | Emergency (ER) | payer MEDICAID ==
[~2019-10-25] VITALS: Ht 195.6 cm; Wt 150.0 kg
[2019-10-25 16:27] VITALS: BP 138/87; TEMP 97.6
[2019-10-25 17:21] LABS: BASO % 0.4 % (0.0-2.0); EOS % 0.3 % (0-4.0); GRAN # 4.5 (1.4-6.5); GRAN % 59.5 % (42.2-75.2); HEMATOCRIT 42.9 % (42.0-52.0); HEMOGLOBIN 14.9 g/dl (13.5-18.0); LYMPH # 2.3 (1.2-3.4); LYMPH % 30.4 % (20.0-51.0); MEAN CELL VOLUME 94 fl (80.0-100.0); MEAN CORPUSCULAR HEMOGLOBIN 33 pg (27.0-31.0); MEAN CORPUSCULAR HGB CONC 35 g/dl (33.0-37.0); MEAN PLATELET VOLUME 10.2 fl (7.4-10.4); MONO # 0.7 (0.1-0.6); MONO % 9.1 % (1.7-9.3); PLATELET COUNT 180 K/mm3 (130-400); RED BLOOD COUNT 4.58 M/mm3 (4.20-5.60); REDCELL DISTRIBUTION WIDTH-CV 12.8 % (11.5-14.5)
[2019-10-25 17:24] LABS: INR 1.1 (0.8-3.0); PROTHROMBIN TIME 12.9 SECONDS (9.7-12.8)
[2019-10-25 17:33] LABS: ALANINE AMINOTRANSFERASE 69 U/L (21-72); ALBUMIN 4.6 gm/dL (3.5-5.0); ALKALINE PHOSPHATASE 63 U/L (50-136); ANION GAP 11 mmol/L (7-16); AST,SGOT 39 U/L (15-37); BILIRUBIN,TOTAL 0.8 mg/dL (0.0-1.0); BLOOD UREA NITROGEN 13 mg/dL (9-20); CALCIUM 9.1 mg/dL (8.4-10.2); CARBON DIOXIDE 23 mmol/L (22-30); CHLORIDE 105 mmol/L (98-107); CREATININE, serum 0.99 (0.66-1.25); GLUCOSE 83 mg/dL (74-106); LIPASE 61 U/L (23-300); POTASSIUM 3.7 mmol/L (3.4-5.0); SODIUM 139 mmol/L (137-145); TOTAL PROTEIN 7.5 gm/dL (6.4-8.2)
[2019-10-25 17:34] LABS: C-REACTIVE PROTEIN < 0.5 mg/dL (0.0-0.9)
[2019-10-25] MEDS ORDERED: ZOFRAN 4MG T4 MG/TAB PO (18:01)
[2019-10-25] MEDS ORDERED: PROTONIX 40MG T40 MG PO (18:01)
[2019-10-25 18:14] VITALS: PULSE 83
== END 2019-10-25 18:14 | disposition home or self-care (01) ==
LOC: COL.ER 16:12
PROVIDERS: Emergency Medicine
DX: R10.33 Periumbilical pain (principal); R11.10 Vomiting, unspecified; R31.9 Hematuria, unspecified; F17.210 Nicotine dependence, cigarettes, uncomplicated
CPT/HCPCS: J2405; J3010; J7030

== ENCOUNTER 2020-12-27 18:19 | Emergency (ER) | payer MEDICAID ==
[~2020-12-27] VITALS: Ht 195.6 cm; Wt 150.0 kg
[~2020-12-27 18:19] MED LIST changes: +PROTONIX 40MG T40 MG PO
[2020-12-27 19:39] VITALS: BP 157/72; PULSE 80; TEMP 98.2
== END 2020-12-27 19:43 | disposition home or self-care (01) ==
LOC: COL.ER 18:19
DX: S93.402A Sprain of unspecified ligament of left ankle, initial encounter (principal); Z88.5 Allergy status to narcotic agent; Z88.6 Allergy status to analgesic agent; X50.1XXA Overexertion from prolonged static or awkward postures, initial encounter; Y99.0 Civilian activity done for income or pay

== ENCOUNTER 2021-01-31 13:01 | Emergency (ER) | payer MEDICAID ==
[~2021-01-31] VITALS: Ht 195.6 cm; Wt 150.0 kg
[2021-01-31 13:12] VITALS: TEMP 98.9
[2021-01-31 13:29] LABS: COLLECTION METHOD CLEAN CATCH
[2021-01-31 13:44] LABS: BASO % 0.5 % (0.0-2.0); EOS # 0.1 (0.0-0.7); EOS % 2.2 % (0-4.0); GRAN # 3.6 (1.4-6.5); GRAN % 57.5 % (42.2-75.2); HEMATOCRIT 43.1 % (42.0-52.0); HEMOGLOBIN 14.7 g/dl (13.5-18.0); LYMPH % 32.4 % (20.0-51.0); MEAN CELL VOLUME 95 fl (80.0-100.0); MEAN CORPUSCULAR HEMOGLOBIN 32 pg (27.0-31.0); MEAN CORPUSCULAR HGB CONC 34 g/dl (33.0-37.0); MEAN PLATELET VOLUME 11.5 fl (7.4-10.4); MONO # 0.5 (0.1-0.6); MONO % 7.2 % (1.7-9.3); PLATELET COUNT 191 K/mm3 (130-400); RED BLOOD COUNT 4.55 M/mm3 (4.20-5.60); REDCELL DISTRIBUTION WIDTH-CV 12.9 % (11.5-14.5)
[2021-01-31 13:59] LABS: BUDDING YEAST Present /hpf; MUCOUS Present /lpf; PH 5 (5-8); SQUAMOUS EPITHELIAL None Seen /hpf; URINE APPEARANCE Cloudy; URINE BACTERIA None Seen /hpf; URINE BILIRUBIN Negative (NEGATIVE); URINE BLOOD 3+ (NEGATIVE); URINE CALCIUM OXALATE CRYSTAL Present /hpf; URINE COLOR Yellow; URINE GLUCOSE Negative (NEGATIVE); URINE KETONE Negative (NEGATIVE); URINE LEUKOCYTE ESTERASE Negative (NEGATIVE); URINE NITRATE Negative (NEGATIVE); URINE PROTEIN(semi-quant) 2+ (NEGATIVE); URINE RBC >50 /hpf
[2021-01-31 14:01] LABS: ALANINE AMINOTRANSFERASE 63 U/L (4-49); ALBUMIN 4.2 gm/dL (3.5-5.0); ALKALINE PHOSPHATASE 51 U/L (50-136); ANION GAP 5 mmol/L (7-16); AST,SGOT 41 U/L (15-37); BILIRUBIN,TOTAL 0.3 mg/dL (0.0-1.0); BLOOD UREA NITROGEN 10 mg/dL (9-20); CALCIUM 9.3 mg/dL (8.4-10.2); CARBON DIOXIDE 24 mmol/L (22-30); CHLORIDE 109 mmol/L (98-107); CREATININE, serum 0.91 (0.66-1.25); GLUCOSE 128 mg/dL (74-106); POTASSIUM 3.6 mmol/L (3.4-5.0); SODIUM 138 mmol/L (137-145); TOTAL PROTEIN 7.1 gm/dL (6.4-8.2)
[2021-01-31 14:47] LABS: C-REACTIVE PROTEIN < 0.5 mg/dL (0.0-0.9)
[2021-01-31] MEDS ORDERED: NORCO 325 MG-51 TAB PO (16:42)
[2021-01-31 16:54] VITALS: BP 145/86; PULSE 77
== END 2021-01-31 16:55 | disposition home or self-care (01) ==
LOC: COL.ER 13:01
PROVIDERS: Nurse Practitioner
DX: N13.2 Hydronephrosis with renal and ureteral calculous obstruction (principal); F17.210 Nicotine dependence, cigarettes, uncomplicated
CPT/HCPCS: J1170; J2405; J7030; Q9967

== ENCOUNTER → 2021-06-04 | Outpatient (REF) | LOC: COL.CARD 13:12 | DX: Z01.810 Encounter for preprocedural cardiovascular examination (principal) ==